=== PATIENT | male | born 1960 | race African-American/Black ===

== ENCOUNTER 2018-03-19 18:11 | Emergency (ER) | payer MEDICAID, MEDICARE ==
[~2018-03-19] VITALS: Ht 162.6 cm; Wt 76.0 kg
[~2018-03-19 18:11] MED LIST: [UNRECOGNIZED DRUG - REMARK]
[2018-03-20] MEDS ORDERED: IBUPROFEN 600MG TABLET PO ONE (01:30)
[2018-03-20] MEDS ORDERED: ACETAMINOPHEN 325MG TABLET PO ONE (01:30)
[2018-03-20 01:45] LABS: BASOPHILS % 0.6 % (0.0-2.0); EOSINOPHILS % 4.2 % (0.0-5.0); HEMATOCRIT. 44.6 % (42.0-52.0); LYMPHOCYTES % 42.7 % (20.0-50.0); MEAN CORPUSCULAR HEMOGLOBIN 27.5 pg (28.0-32.0); MEAN PLATELET VOLUME 9.1 fl (7.4-10.4); MONOCYTES % 12.2 % (2.0-8.0); NEUTROPHILS % 40.3 % (40.0-76.0); PLATELET 208 x1000/uL (130-400); RED BLOOD CELL COUNT 5.44 mill/uL (4.7-6.1); RED CELL DISTRIBUTION WIDTH 14.6 % (11.6-14.6)
[2018-03-20 01:52] LABS: CHLORIDE 108 mEq/L (98-107)
[2018-03-20 01:56] LABS: D-DIMER 0.2 mg/L FEU (<0.50); PROTHROMBIN TIME 10.8 sec (9.4-11.6)
[2018-03-20 03:12] VITALS: BP 132/88
== END 2018-03-20 03:16 | disposition home or self-care (01) ==
LOC: ER 18:11
DX: M54.6 Pain in thoracic spine (principal); I10 Essential (primary) hypertension; R79.1 Abnormal coagulation profile; F17.200 Nicotine dependence, unspecified, uncomplicated
CPT/HCPCS: 36415; 71045; 80053; 83880; 84484; 85025; 85379; 85610; 93005; 99285

== ENCOUNTER 2018-05-04 07:49 | Emergency (ER) | payer MEDICARE ==
[~2018-05-04] VITALS: Ht 177.8 cm; Wt 78.2 kg
[2018-05-04] MEDS ORDERED: KETOROLAC 60MG/2ML VIAL IM ONE (09:15)
[2018-05-04 09:52] VITALS: BP 112/81
== END 2018-05-04 09:54 | disposition home or self-care (01) ==
LOC: ER 07:49
DX: M54.42 Lumbago with sciatica, left side (principal); I10 Essential (primary) hypertension
CPT/HCPCS: 96372; 99283; J1885

== ENCOUNTER 2018-05-06 09:06 | Emergency (ER) | payer MEDICARE ==
[~2018-05-06] VITALS: Ht 162.6 cm; Wt 77.0 kg
[2018-05-06] MEDS ORDERED: KETOROLAC 60MG/2ML VIAL IM ONE (10:00)
[2018-05-06] MEDS ORDERED: DIAZEPAM 5 MG TABLET PO ONE (10:00)
[2018-05-06] MEDS ORDERED: PREDNISONE 20MG TABLET PO ONE (10:00)
[2018-05-06] MEDS ORDERED: BACITRACIN ZINC OINT UDPKT TOP ONE (10:30)
[2018-05-06 11:01] VITALS: BP 144/82
== END 2018-05-06 11:03 | disposition home or self-care (01) ==
LOC: ER 09:06
DX: M54.40 Lumbago with sciatica, unspecified side (principal); I10 Essential (primary) hypertension; F17.200 Nicotine dependence, unspecified, uncomplicated
CPT/HCPCS: 96372; 99283; J1885; J7512; Z7610

== ENCOUNTER 2018-05-21 10:45 | Emergency (ER) | payer MEDICARE ==
[~2018-05-21] VITALS: Ht 170.2 cm; Wt 76.0 kg
[2018-05-21 10:51] VITALS: BP 113/92
== END 2018-05-21 18:21 | disposition left against medical advice (07) ==
LOC: ER 10:45
DX: Z53.21 Procedure and treatment not carried out due to patient leaving prior to being seen by health care provider (principal)

== ENCOUNTER 2019-08-26 22:47 | Emergency (ER) | payer MEDICARE ==
[~2019-08-26] VITALS: Ht 190.5 cm; Wt 95.0 kg
[2019-08-26 23:52] VITALS: BP 132/67
== END 2019-08-26 23:55 | disposition home or self-care (01) ==
LOC: ER 22:47
DX: F10.129 Alcohol abuse with intoxication, unspecified (principal); F17.210 Nicotine dependence, cigarettes, uncomplicated; I10 Essential (primary) hypertension; Y90.9 Presence of alcohol in blood, level not specified
CPT/HCPCS: 99283; 99406

== ENCOUNTER 2020-04-11 19:50 | Emergency (ER) | payer MEDICAID, MEDICARE ==
[~2020-04-11] VITALS: Ht 177.8 cm; Wt 82.0 kg
[2020-04-11 22:54] LABS: BG CARBOXYHEMOGLOBIN 1.7 % (0.5-1.5); BG DEOXYHEMOGLOBIN 6.8 % (0.0-5.0); BG FRACTION INSPIRED OXYGEN 21; BG HCO3 ACT 21.8 mmol/L (22.0-26.0); BG METHEMOGLOBIN 0.3 % (0.0-1.5); BG OXYGEN SATURATION 93.1 % (92.0-98.5); BG OXYHEMOGLOBIN 91.2 % (94.0-97.0); BG PCO2 34.7 mmHg (35.0-45.0); BG PH 7.416 (7.350-7.450); BG PO2 63.5 mmHg (75.0-100.0); BG SAMPLE SITE LEFT RADIAL; BG TOTAL HEMOGLOBIN 14.2 g/dL (12.0-18.0); BG VENT MODE ROOM AIR
[2020-04-12 00:13] LABS: CHLORIDE 106 mEq/L (98-107)
[2020-04-12 00:16] LABS: BASOPHILS % 0.3 % (0.0-2.0); EOSINOPHILS % 0.3 % (0.0-5.0); ETHANOL BLOOD < 10 mg/dL; HEMATOCRIT. 37.2 % (42.0-52.0); HEMOGLOBIN. 12.4 g/dL (14.0-18.0); LYMPHOCYTES % 9.6 % (20.0-50.0); MEAN CORPUSCULAR HEMOGLOBIN 27.2 pg (28.0-32.0); MEAN CORPUSCULAR VOLUME 81.9 fL (80.0-94.0); MEAN PLATELET VOLUME 8.5 fl (7.4-10.4); MONOCYTES % 8.5 % (2.0-8.0); NEUTROPHILS % 81.3 % (40.0-76.0); PLATELET 243 x1000/uL (130-400); RED BLOOD CELL COUNT 4.54 mill/uL (4.7-6.1); RED CELL DISTRIBUTION WIDTH 14.6 % (11.6-14.6)
[2020-04-12 00:24] LABS: CLARITY URINE CLEAR (CLEAR); COLOR URINE YELLOW (YELLOW); KETONES URINE TRACE (NEGATIVE); LEUKOCYTE ESTERASE URINE NEGATIVE (NEGATIVE); NITRITE URINE NEGATIVE (NEGATIVE); OCCULT BLOOD URINE NEGATIVE (NEGATIVE); PH URINE 6.5 (4.5-8.0); PROTEIN URINE TRACE (NEGATIVE); SPECIFIC GRAVITY URINE 1.013 (1.005-1.030); UROBILINOGEN URINE 0.2 E.U./dL (0.2-1.0)
[2020-04-12 00:37] LABS: PHENCYCLIDINE URINE SCREEN NEGATIVE (NEGATIVE)
[2020-04-12 00:38] LABS: *AMPHETAMINES SCREEN URINE NEGATIVE (NEGATIVE); *BARBITURATES SCREEN URINE NEGATIVE (NEGATIVE); *BENZODIAZEPINES SCREEN URINE PRESUMTIVE POSITIVE (NEGATIVE); *COCAINE SCREEN URINE PRESUMTIVE POSITIVE (NEGATIVE); CANNABINOID URINE SCREEN NEGATIVE (NEGATIVE); METHADONE URINE SCREEN NEGATIVE (NEGATIVE); OPIATES URINE SCREEN NEGATIVE (NEGATIVE)
[2020-04-12 01:40] VITALS: BP 142/87
== END 2020-04-12 02:08 | disposition home or self-care (01) ==
LOC: ER 19:50
DX: T40.5X1A Poisoning by cocaine, accidental (unintentional), initial encounter (principal); G92 Toxic encephalopathy; Y92.018 Other place in single-family (private) house as the place of occurrence of the external cause
CPT/HCPCS: 36415; 36600; 80053; 80305; 80320; 81003; 82375; 82805; 85025; 93005; 99284; G0480

== ENCOUNTER 2021-02-15 16:55 | Emergency (ER) | payer MEDICAID ==
[~2021-02-15] VITALS: Ht 165.1 cm; Wt 75.0 kg
[2021-02-15 17:00] VITALS: BP 119/77
[2021-02-15 18:19] LABS: CLARITY URINE CLEAR (CLEAR); COLOR URINE YELLOW (YELLOW); KETONES URINE 1+ (NEGATIVE); LEUKOCYTE ESTERASE URINE NEGATIVE (NEGATIVE); NITRITE URINE NEGATIVE (NEGATIVE); OCCULT BLOOD URINE NEGATIVE (NEGATIVE); PH URINE 5.5 (4.5-8.0); PROTEIN URINE 1+ (NEGATIVE); SPECIFIC GRAVITY URINE 1.033 (1.005-1.030)
== END 2021-02-15 18:07 | disposition home or self-care (01) ==
LOC: ER 16:55
DX: R19.8 Other specified symptoms and signs involving the digestive system and abdomen (principal); I10 Essential (primary) hypertension; N40.0 Benign prostatic hyperplasia without lower urinary tract symptoms
CPT/HCPCS: 81003; 99283

== ENCOUNTER 2021-02-27 08:27 | Emergency (ER) | payer MEDICAID ==
[~2021-02-27] VITALS: Ht 162.6 cm; Wt 77.0 kg
[2021-02-27] MEDS ORDERED: LIDOCAINE HCL 2% JELLY 5ML MM ONE (09:00)
[2021-02-27 11:38] LABS: CLARITY URINE CLEAR (CLEAR); COLOR URINE YELLOW (YELLOW); KETONES URINE TRACE (NEGATIVE); LEUKOCYTE ESTERASE URINE NEGATIVE (NEGATIVE); NITRITE URINE NEGATIVE (NEGATIVE); OCCULT BLOOD URINE NEGATIVE (NEGATIVE); PROTEIN URINE NEGATIVE (NEGATIVE)
[2021-02-27] MEDS ORDERED: ALFU10TA9 MT (11:54)
[2021-02-27 12:25] VITALS: BP 120/79
[2021-02-28] MEDS ORDERED: CEFU500T41 MT (16:20)
[2021-02-28] MEDS ORDERED: TOPUD MT (16:20)
== END 2021-02-27 12:30 | disposition home or self-care (01) ==
LOC: ER 08:27
DX: R10.30 Lower abdominal pain, unspecified (principal); R30.0 Dysuria; I10 Essential (primary) hypertension; Z98.890 Other specified postprocedural states; Z85.46 Personal history of malignant neoplasm of prostate
CPT/HCPCS: 81003; 87086; 99283; Z7610

== ENCOUNTER 2021-02-28 14:26 | Emergency (ER) | payer MEDICAID, OTHER ==
[~2021-02-28] VITALS: Ht 162.6 cm; Wt 81.0 kg
[~2021-02-28 14:26] MED LIST changes: +ALFU10TA9 MT
[2021-02-28 14:29] VITALS: BP 129/78
[2021-02-28] MEDS ORDERED: LIDOCAINE HCL 2% JELLY 5ML TOP ONE (15:15)
[2021-02-28 15:41] LABS: CLARITY URINE CLEAR (CLEAR); COLOR URINE YELLOW (YELLOW); KETONES URINE TRACE (NEGATIVE); LEUKOCYTE ESTERASE URINE 1+ (NEGATIVE); NITRITE URINE NEGATIVE (NEGATIVE); OCCULT BLOOD URINE 2+ (NEGATIVE); PH URINE 6.5 (4.5-8.0); PROTEIN URINE 1+ (NEGATIVE); SPECIFIC GRAVITY URINE 1.022 (1.005-1.030)
[2021-02-28] MEDS ORDERED: TOPUD MT (16:20)
[2021-02-28] MEDS ORDERED: CEFU500T41 MT (16:20)
== END 2021-02-28 16:34 | disposition home or self-care (01) ==
LOC: ER 14:26
DX: N30.00 Acute cystitis without hematuria (principal); Z46.6 Encounter for fitting and adjustment of urinary device; I10 Essential (primary) hypertension; Z85.46 Personal history of malignant neoplasm of prostate
CPT/HCPCS: 81003; 99283

== ENCOUNTER 2021-03-01 15:03 | Emergency (ER) | payer OTHER ==
[~2021-03-01] VITALS: Ht 157.5 cm; Wt 72.0 kg
[~2021-03-01 15:03] MED LIST changes: +CEFU500T41 MT; +TOPUD MT
[2021-03-01 17:26] VITALS: BP 121/68
== END 2021-03-01 17:28 | disposition home or self-care (01) ==
LOC: ER 15:38
DX: Z46.6 Encounter for fitting and adjustment of urinary device (principal); I10 Essential (primary) hypertension; Z85.9 Personal history of malignant neoplasm, unspecified; Z87.440 Personal history of urinary (tract) infections
CPT/HCPCS: 99281

== ENCOUNTER 2021-10-28 08:57 | Emergency (ER) | payer MEDICAID, OTHER ==
[~2021-10-28] VITALS: Ht 162.6 cm; Wt 77.0 kg
[2021-10-28] MEDS ORDERED: IBUPROFEN 400MG TABLET PO ONE (10:30)
[2021-10-28] MEDS ORDERED: ACETAMINOPHEN 325MG TABLET PO ONE (10:30)
[2021-10-28 10:45] LABS: CLARITY URINE CLEAR (CLEAR); COLOR URINE YELLOW (YELLOW); KETONES URINE NEGATIVE (NEGATIVE); LEUKOCYTE ESTERASE URINE NEGATIVE (NEGATIVE); NITRITE URINE NEGATIVE (NEGATIVE); OCCULT BLOOD URINE NEGATIVE (NEGATIVE); PH URINE 6.5 (4.5-8.0); PROTEIN URINE NEGATIVE (NEGATIVE); SPECIFIC GRAVITY URINE 1.012 (1.005-1.030); UROBILINOGEN URINE 0.2 E.U./dL (0.2-1.0)
[2021-10-28 11:51] LABS: CHLORIDE 112 mEq/L (98-107)
[2021-10-28] MEDS ORDERED: IOHEXOL-300 100 ML BOTTLE ONE (14:24)
[2021-10-28] MEDS ORDERED: CEPH500C2 MT (15:59)
[2021-10-28 16:22] VITALS: BP 148/84
== END 2021-10-28 16:23 | disposition home or self-care (01) ==
LOC: ER 08:57
DX: R10.32 Left lower quadrant pain (principal); R30.0 Dysuria; I10 Essential (primary) hypertension
CPT/HCPCS: 36415; 74177; 80048; 81003; 99284; Q9967

== ENCOUNTER 2021-11-02 10:38 | Emergency (ER) | payer OTHER ==
[~2021-11-02] VITALS: Ht 162.6 cm; Wt 75.0 kg
[~2021-11-02 10:38] MED LIST changes: +CEPH500C2 MT
[2021-11-02] MEDS ORDERED: ACETAMINOPHEN WITH CODEINE 300/30MG TABLET PO ONE (11:30)
[2021-11-02 11:59] VITALS: BP 145/96
[2021-11-02 12:14] LABS: CLARITY URINE CLEAR (CLEAR); COLOR URINE YELLOW (YELLOW); KETONES URINE NEGATIVE (NEGATIVE); LEUKOCYTE ESTERASE URINE NEGATIVE (NEGATIVE); NITRITE URINE NEGATIVE (NEGATIVE); OCCULT BLOOD URINE 1+ (NEGATIVE); PROTEIN URINE NEGATIVE (NEGATIVE); SPECIFIC GRAVITY URINE 1.006 (1.005-1.030); UROBILINOGEN URINE 0.2 E.U./dL (0.2-1.0)
== END 2021-11-02 12:38 | disposition home or self-care (01) ==
LOC: ER 10:38
DX: R33.9 Retention of urine, unspecified (principal); I10 Essential (primary) hypertension; Z98.890 Other specified postprocedural states
CPT/HCPCS: 51702; 81003; 99284; A4315

== ENCOUNTER 2021-11-09 15:16 | Emergency (ER) | payer OTHER ==
[~2021-11-09] VITALS: Ht 177.8 cm; Wt 90.0 kg
[2021-11-09 15:57] LABS: BASOPHILS % 0.7 % (0.0-2.0); EOSINOPHILS % 1.1 % (0.0-5.0); HEMATOCRIT. 41.8 % (42.0-52.0); HEMOGLOBIN. 13.8 g/dL (14.0-18.0); LYMPHOCYTES % 28.6 % (20.0-50.0); MEAN CORPUSCULAR HEMOGLOBIN 26.2 pg (28.0-32.0); MEAN CORPUSCULAR VOLUME 79.7 fL (80.0-94.0); MEAN PLATELET VOLUME 8.4 fl (7.4-10.4); MONOCYTES % 9.3 % (2.0-8.0); NEUTROPHILS % 60.3 % (40.0-76.0); PLATELET 239 x1000/uL (130-400); RED BLOOD CELL COUNT 5.25 mill/uL (4.7-6.1); RED CELL DISTRIBUTION WIDTH 14.4 % (11.6-14.6)
[2021-11-09 16:03] LABS: CHLORIDE 110 mEq/L (98-107)
[2021-11-09 16:17] VITALS: BP 138/83
[2021-11-09 16:29] LABS: CLARITY URINE CLEAR (CLEAR); COLOR URINE YELLOW (YELLOW); KETONES URINE NEGATIVE (NEGATIVE); LEUKOCYTE ESTERASE URINE 1+ (NEGATIVE); NITRITE URINE NEGATIVE (NEGATIVE); OCCULT BLOOD URINE 3+ (NEGATIVE); PROTEIN URINE 1+ (NEGATIVE); SPECIFIC GRAVITY URINE 1.009 (1.005-1.030); UROBILINOGEN URINE 0.2 E.U./dL (0.2-1.0)
[2021-11-09] MEDS ORDERED: OXYC-662 MT (17:30)
== END 2021-11-09 17:55 | disposition home or self-care (01) ==
LOC: ER 15:16
DX: R33.9 Retention of urine, unspecified (principal); Z98.890 Other specified postprocedural states
CPT/HCPCS: 36415; 80053; 81003; 85025; 99283

== ENCOUNTER 2021-11-20 11:53 | Emergency (ER) | payer OTHER ==
[~2021-11-20] VITALS: Ht 162.6 cm; Wt 69.0 kg
[~2021-11-20 11:53] MED LIST changes: +OXYC-662 MT
[2021-11-20 12:15] LABS: BASOPHILS % 0.6 % (0.0-2.0); EOSINOPHILS % 0.6 % (0.0-5.0); HEMATOCRIT. 40.5 % (42.0-52.0); HEMOGLOBIN. 13.5 g/dL (14.0-18.0); LYMPHOCYTES % 17.9 % (20.0-50.0); MEAN CORPUSCULAR HEMOGLOBIN 26.5 pg (28.0-32.0); MEAN CORPUSCULAR VOLUME 79.4 fL (80.0-94.0); MONOCYTES % 13.1 % (2.0-8.0); NEUTROPHILS % 67.8 % (40.0-76.0); PLATELET 182 x1000/uL (130-400); RED CELL DISTRIBUTION WIDTH 14.3 % (11.6-14.6)
[2021-11-20 12:23] LABS: CHLORIDE 110 mEq/L (98-107)
[2021-11-20] MEDS ORDERED: HYDROCODONE/ACETAMINOPHEN 10/325MG TABLET PO ONE (16:30)
[2021-11-20 16:32] LABS: CLARITY URINE CLEAR (CLEAR); COLOR URINE YELLOW (YELLOW); KETONES URINE NEGATIVE (NEGATIVE); LEUKOCYTE ESTERASE URINE 1+ (NEGATIVE); NITRITE URINE POSITIVE (NEGATIVE); OCCULT BLOOD URINE 2+ (NEGATIVE); PROTEIN URINE TRACE (NEGATIVE); UROBILINOGEN URINE 0.2 E.U./dL (0.2-1.0)
[2021-11-20 16:42] LABS: CANNABINOID URINE SCREEN NEGATIVE (NEGATIVE); METHADONE URINE SCREEN NEGATIVE (NEGATIVE); OPIATES URINE SCREEN PRESUMTIVE POSITIVE (NEGATIVE)
[2021-11-20 16:43] LABS: *AMPHETAMINES SCREEN URINE NEGATIVE (NEGATIVE); *BARBITURATES SCREEN URINE NEGATIVE (NEGATIVE); *BENZODIAZEPINES SCREEN URINE NEGATIVE (NEGATIVE); *COCAINE SCREEN URINE NEGATIVE (NEGATIVE); PHENCYCLIDINE URINE SCREEN NEGATIVE (NEGATIVE)
[2021-11-20] MEDS ORDERED: MORPHINE SULFATE 4 MG/ML CPJ (NOT FOR IM USE) IV ONE (17:00)
[2021-11-20] MEDS ORDERED: KETOROLAC 30MG/ML VIAL IV ONE (19:45)
[2021-11-20] MEDS ORDERED: SODIUM CHLORIDE 0.9% 1,000 ML IV ONE (20:00)
[2021-11-20] MEDS ORDERED: CEFTRIAXONE 1 G PREMIX 50 ML IV NR (20:00)
[2021-11-20] MEDS ORDERED: CIPR-263 MT (21:20)
[2021-11-20] MEDS ORDERED: PHEN97.517 MT (21:20)
[2021-11-20 22:36] VITALS: BP 144/83
== END 2021-11-20 22:48 | disposition home or self-care (01) ==
LOC: ER 12:24
DX: T83.84XA Pain due to genitourinary prosthetic devices, implants and grafts, initial encounter (principal); N39.0 Urinary tract infection, site not specified; I49.9 Cardiac arrhythmia, unspecified; Z20.822 Contact with and (suspected) exposure to COVID-19
CPT/HCPCS: 36415; 80053; 80305; 81003; 83605; 85025; 87040; 87086; 87426; 93005; 96361; 96365; 96375; 99284; J0696; J1885; J2270

== ENCOUNTER 2021-12-03 15:11 | Emergency (ER) | payer OTHER ==
[~2021-12-03] VITALS: Ht 162.6 cm; Wt 68.0 kg
[~2021-12-03 15:11] MED LIST changes: +CIPR-263 MT; +PHEN97.517 MT
[2021-12-03 17:26] VITALS: BP 161/101
== END 2021-12-03 17:26 | disposition home or self-care (01) ==
LOC: ER 15:11
DX: T83.098A Other mechanical complication of other urinary catheter, initial encounter (principal); Y84.6 Urinary catheterization as the cause of abnormal reaction of the patient, or of later complication, without mention of misadventure at the time of the procedure; I10 Essential (primary) hypertension; Z85.46 Personal history of malignant neoplasm of prostate; Y92.018 Other place in single-family (private) house as the place of occurrence of the external cause
CPT/HCPCS: 99281

== ENCOUNTER 2021-12-17 03:15 | Emergency (ER) | payer MEDICAID, OTHER ==
[~2021-12-17] VITALS: Ht 154.9 cm; Wt 69.0 kg
[2021-12-17 03:25] VITALS: BP 154/87
[2021-12-17 04:42] LABS: CLARITY URINE CLEAR (CLEAR); COLOR URINE YELLOW (YELLOW); KETONES URINE NEGATIVE (NEGATIVE); LEUKOCYTE ESTERASE URINE NEGATIVE (NEGATIVE); NITRITE URINE NEGATIVE (NEGATIVE); OCCULT BLOOD URINE TRACE (NEGATIVE); PH URINE 5.5 (4.5-8.0); PROTEIN URINE NEGATIVE (NEGATIVE); SPECIFIC GRAVITY URINE 1.012 (1.005-1.030); UROBILINOGEN URINE 0.2 E.U./dL (0.2-1.0)
== END 2021-12-17 05:26 | disposition home or self-care (01) ==
LOC: ER 03:35
DX: T83.098A Other mechanical complication of other urinary catheter, initial encounter (principal); R33.9 Retention of urine, unspecified; I10 Essential (primary) hypertension; Z85.46 Personal history of malignant neoplasm of prostate; Y84.6 Urinary catheterization as the cause of abnormal reaction of the patient, or of later complication, without mention of misadventure at the time of the procedure; Y92.018 Other place in single-family (private) house as the place of occurrence of the external cause
CPT/HCPCS: 81003; 99283; A4315

== ENCOUNTER 2022-01-05 03:30 | Emergency (ER) | payer MEDICAID ==
[~2022-01-05] VITALS: Ht 162.6 cm; Wt 68.9 kg
[2022-01-05] MEDS ORDERED: METOCLOPRAMIDE HCL 10MG/2ML VIAL IV STA (05:26)
[2022-01-05] MEDS ORDERED: SODIUM CHLORIDE 0.9% 1,000 ML IV ONE (05:30)
[2022-01-05] MEDS ORDERED: KETOROLAC 15MG/ML VIAL IV ONE (05:30)
[2022-01-05 06:16] LABS: BASOPHILS % 0.3 % (0.0-2.0); EOSINOPHILS % 1.8 % (0.0-5.0); HEMATOCRIT. 28.7 % (42.0-52.0); HEMOGLOBIN. 9.7 g/dL (14.0-18.0); LYMPHOCYTES % 35.7 % (20.0-50.0); MEAN CORPUSCULAR HEMOGLOBIN 26.1 pg (28.0-32.0); MEAN CORPUSCULAR VOLUME 77.2 fL (80.0-94.0); MEAN PLATELET VOLUME 7.5 fl (7.4-10.4); MONOCYTES % 12.3 % (2.0-8.0); NEUTROPHILS % 49.9 % (40.0-76.0); PLATELET 246 x1000/uL (130-400); RED BLOOD CELL COUNT 3.72 mill/uL (4.7-6.1); RED CELL DISTRIBUTION WIDTH 15.4 % (11.6-14.6)
[2022-01-05 06:26] LABS: CHLORIDE 112 mEq/L (98-107)
[2022-01-05 09:44] LABS: CLARITY URINE CLEAR (CLEAR); COLOR URINE YELLOW (YELLOW); KETONES URINE NEGATIVE (NEGATIVE); LEUKOCYTE ESTERASE URINE TRACE (NEGATIVE); NITRITE URINE NEGATIVE (NEGATIVE); OCCULT BLOOD URINE NEGATIVE (NEGATIVE); PH URINE 5.5 (4.5-8.0); PROTEIN URINE NEGATIVE (NEGATIVE); SPECIFIC GRAVITY URINE 1.007 (1.005-1.030); UROBILINOGEN URINE 0.2 E.U./dL (0.2-1.0)
[2022-01-05 11:40] VITALS: BP 139/85
== END 2022-01-05 11:54 | disposition home or self-care (01) ==
LOC: ER 03:30
DX: R10.9 Unspecified abdominal pain (principal); Z46.6 Encounter for fitting and adjustment of urinary device; I10 Essential (primary) hypertension; Z85.46 Personal history of malignant neoplasm of prostate
CPT/HCPCS: 36415; 74176; 80053; 81003; 83605; 83690; 84484; 85025; 93005; 96361; 96374; 96375; 99285; J1885; J2765; J7030

== ENCOUNTER 2022-01-22 00:11 | Emergency (ER) | payer MEDICAID ==
[~2022-01-22] VITALS: Ht 162.6 cm; Wt 66.7 kg
[2022-01-22 00:19] VITALS: BP 140/81
[2022-02-01] MEDS ORDERED: CETI10CA11 MT (15:58)
== END 2022-01-22 02:09 | disposition home or self-care (01) ==
LOC: ER 00:11
DX: Z46.6 Encounter for fitting and adjustment of urinary device (principal); Z85.46 Personal history of malignant neoplasm of prostate
CPT/HCPCS: 51702; 99284

== ENCOUNTER 2022-02-27 04:16 | Emergency (ER) | payer MEDICAID ==
[~2022-02-27] VITALS: Ht 162.6 cm; Wt 69.3 kg
[~2022-02-27 04:16] MED LIST changes: +CETI10CA11 MT
[2022-02-27 05:58] LABS: CLARITY URINE CLOUDY (CLEAR); COLOR URINE YELLOW (YELLOW); KETONES URINE NEGATIVE (NEGATIVE); LEUKOCYTE ESTERASE URINE 3+ (NEGATIVE); NITRITE URINE POSITIVE (NEGATIVE); OCCULT BLOOD URINE 3+ (NEGATIVE); PH URINE 5.5 (4.5-8.0); PROTEIN URINE 2+ (NEGATIVE); SPECIFIC GRAVITY URINE 1.014 (1.005-1.030)
[2022-02-27] MEDS ORDERED: LEVO250T43 PO (06:38)
[2022-02-27 06:45] VITALS: BP 136/79
== END 2022-02-27 06:50 | disposition home or self-care (01) ==
LOC: ER 04:16
DX: N39.0 Urinary tract infection, site not specified (principal); I10 Essential (primary) hypertension; Z85.46 Personal history of malignant neoplasm of prostate; Z98.890 Other specified postprocedural states
CPT/HCPCS: 81003; 87077; 87186; 99283

== ENCOUNTER 2022-03-23 09:47 | Emergency (ER) | payer MEDICAID ==
[~2022-03-23] VITALS: Ht 175.3 cm; Wt 75.0 kg
[~2022-03-23 09:47] MED LIST changes: +LEVO250T43 PO
[2022-03-23 13:39] LABS: BASOPHILS % 0.3 % (0.0-2.0); EOSINOPHILS % 1.4 % (0.0-5.0); HEMATOCRIT. 32.6 % (42.0-52.0); HEMOGLOBIN. 10.3 g/dL (14.0-18.0); LYMPHOCYTES % 38.7 % (20.0-50.0); MEAN CORPUSCULAR HEMOGLOBIN 26.7 pg (28.0-32.0); MEAN CORPUSCULAR VOLUME 84.7 fL (80.0-94.0); MEAN PLATELET VOLUME 7.4 fl (7.4-10.4); MONOCYTES % 9.6 % (2.0-8.0); PLATELET 243 x1000/uL (130-400); RED BLOOD CELL COUNT 3.85 mill/uL (4.7-6.1); RED CELL DISTRIBUTION WIDTH 18.8 % (11.6-14.6)
[2022-03-23 13:44] LABS: CHLORIDE 110 mEq/L (98-107)
[2022-03-23 14:00] LABS: CLARITY URINE TURBID (CLEAR); COLOR URINE YELLOW (YELLOW); KETONES URINE TRACE (NEGATIVE); LEUKOCYTE ESTERASE URINE 3+ (NEGATIVE); NITRITE URINE POSITIVE (NEGATIVE); OCCULT BLOOD URINE 3+ (NEGATIVE); PH URINE 5.5 (4.5-8.0); PROTEIN URINE 2+ (NEGATIVE); SPECIFIC GRAVITY URINE 1.024 (1.005-1.030)
[2022-03-23] MEDS ORDERED: DOXY100C5 MT (14:28)
[2022-03-23] MEDS ORDERED: DOXYCYCLINE HYCLATE 100MG CAPSULE PO ONE (14:30)
[2022-03-23 14:35] VITALS: BP 132/77
== END 2022-03-23 14:36 | disposition home or self-care (01) ==
LOC: ER 10:17
DX: N30.00 Acute cystitis without hematuria (principal); I10 Essential (primary) hypertension; Z85.46 Personal history of malignant neoplasm of prostate; Z90.79 Acquired absence of other genital organ(s); Z87.891 Personal history of nicotine dependence
CPT/HCPCS: 36415; 80053; 81003; 83605; 85025; 87077; 87186; 99283

== ENCOUNTER 2023-03-07 09:30 | Emergency (ER) | payer MEDICAID, OTHER ==
[~2023-03-07] VITALS: Ht 162.6 cm; Wt 72.7 kg
[~2023-03-07 09:30] MED LIST changes: +DOXY100C5 MT; -LEVO250T43 PO; +LEVO250T74 PO
[2023-03-07 09:42] VITALS: O2SAT 98
[2023-03-07] MEDS ORDERED: KETOROLAC 60MG/2ML VIAL IM ONE (10:30)
[2023-03-07] MEDS ORDERED: LEVOFLOXACIN 250MG TABLET PO ONE (10:30)
[2023-03-07] MEDS ORDERED: TAMSULOSIN HCL 0.4MG SR CAPSULE PO ONE (10:30)
[2023-03-07] MEDS ORDERED: LEVOFLOXACIN 500MG TABLET PO NR (10:36)
[2023-03-07] MEDS ORDERED: LEVO-65 MT (12:34)
[2023-03-07] MEDS ORDERED: ALFU10TA9 MT (12:34)
[2023-03-07] MEDS ORDERED: IBUP-2029 MT ×3 (12:34→12:35)
[2023-03-07 13:02] VITALS: BP 128/80; PULSE 99; RESP 22; TEMP 98.2
== END 2023-03-07 13:03 | disposition home or self-care (01) ==
LOC: ER 09:30
DX: N41.9 Inflammatory disease of prostate, unspecified (principal); I10 Essential (primary) hypertension; Z79.899 Other long term (current) drug therapy; Z98.890 Other specified postprocedural states
CPT/HCPCS: 87086; 87186; 87077; 96372; 99283; J1885; Z7610

== ENCOUNTER 2023-04-05 13:29 | Emergency (ER) | payer OTHER ==
[~2023-04-05] VITALS: Ht 162.6 cm; Wt 66.0 kg
[~2023-04-05 13:29] MED LIST changes: +IBUP-2029 MT; +LEVO-65 MT
[2023-04-05 13:38] VITALS: BP 140/86; PULSE 80; RESP 16; TEMP 98.5; O2SAT 100
[2023-04-05] MEDS ORDERED: NITR100C PO (13:51)
[2023-04-05] MEDS ORDERED: PHEN-815 PO (13:52)
== END 2023-04-05 14:06 | disposition home or self-care (01) ==
LOC: ER 13:29
DX: N39.0 Urinary tract infection, site not specified (principal)
CPT/HCPCS: 99281; 99283

== ENCOUNTER 2023-04-09 02:52 | Emergency (ER) | payer OTHER ==
[~2023-04-09] VITALS: Ht 162.6 cm; Wt 68.0 kg
[~2023-04-09 02:52] MED LIST changes: +NITR100C PO; +PHEN-815 PO
[2023-04-09 03:09] VITALS: BP 159/95; O2SAT 99
[2023-04-09 04:32] LABS: CLARITY URINE CLEAR (CLEAR); COLOR URINE YELLOW (YELLOW); GLUCOSE URINE NEGATIVE (NEGATIVE); KETONES URINE NEGATIVE (NEGATIVE); LEUKOCYTE ESTERASE URINE NEGATIVE (NEGATIVE); NITRITE URINE NEGATIVE (NEGATIVE); OCCULT BLOOD URINE 2+ (NEGATIVE); PH URINE 6.5 (4.5-8.0); PROTEIN URINE TRACE (NEGATIVE); SPECIFIC GRAVITY URINE 1.011 (1.005-1.030)
[2023-04-09 04:35] LABS: BACTERIA URINE NONE SEEN; RBC URINE 25-50 /hpf (0-2); SQUAMOUS EPITHELIAL CELL URINE NONE SEEN /lpf (RARE/1+); WBC URINE 0-2 /hpf (0-2); YEAST URINE NONE SEEN
[2023-04-09] MEDS ORDERED: DOXY-456 MT (04:55)
[2023-04-09 05:30] VITALS: PULSE 82; RESP 16; TEMP 98.1
== END 2023-04-09 05:30 | disposition home or self-care (01) ==
LOC: ER 02:52
DX: R30.0 Dysuria (principal); I10 Essential (primary) hypertension; Z79.899 Other long term (current) drug therapy
CPT/HCPCS: 81003; 99283; A4315

== ENCOUNTER 2023-04-14 19:54 | Emergency (ER) | payer OTHER ==
[~2023-04-14] VITALS: Ht 167.6 cm; Wt 72.1 kg
[~2023-04-14 19:54] MED LIST changes: +DOXY-456 MT
[2023-04-14 20:45] VITALS: O2SAT 98
[2023-04-14 21:20] LABS: BASOPHILS % 0.3 % (0.0-2.0); EOSINOPHILS % 1.8 % (0.0-5.0); HEMATOCRIT. 35.3 % (42.0-52.0); HEMOGLOBIN. 11.1 g/dL (14.0-18.0); LYMPHOCYTES % 21.8 % (20.0-50.0); MEAN CORPUSCULAR HEMOGLOBIN 25.4 pg (28.0-32.0); MEAN CORPUSCULAR HGB CONC 31.5 g/dL (31.0-37.0); MEAN CORPUSCULAR VOLUME 80.4 fL (80.0-94.0); MEAN PLATELET VOLUME 7.5 fl (7.4-10.4); MONOCYTES % 7.8 % (2.0-8.0); NEUTROPHILS % 68.3 % (40.0-76.0); PLATELET 376 x1000/uL (130-400); RED BLOOD CELL COUNT 4.38 mill/uL (4.7-6.1); RED CELL DISTRIBUTION WIDTH 17.1 % (11.6-14.6); WHITE BLOOD COUNT 7.3 x1000/uL (4.5-11.0)
[2023-04-14 21:28] LABS: CHLORIDE 109 mEq/L (98-107); INDEX HEMOLYSI 1 (1-3); INDEX ICTERIC 1 (1-4); INDEX LIPEMIC 1 (1-3); POTASSIUM 3.8 mEq/L (3.5-5.1); SODIUM 140 mEq/L (136-145)
[2023-04-14 21:39] LABS: ALANINE AMINOTRANSFERASE 15 IU/L (13-61); ALBUMIN 3.1 g/dL (3.4-5.0); ASPARTATE AMINOTRANSFERASE 20 IU/L (15-37); BILIRUBIN TOTAL 0.2 mg/dL (0.1-1.0); CALCIUM 9.6 mg/dL (8.5-10.1); CARBON DIOXIDE 22 mEq/L (21-32); CREATININE 1.2 mg/dL (0.6-1.3); GLUCOSE 100 mg/dL (70-105); PROTEIN TOTAL 8.4 g/dL (6.0-8.3); TROPONIN I HIGH SENSITIVITY 4 ng/L (<78); UREA NITROGEN BLOOD 18 mg/dL (7-21)
[2023-04-15] MEDS ORDERED: SODIUM CHLORIDE 0.9% 1,000 ML IV ONE (01:15)
[2023-04-15] MEDS ORDERED: IOHEXOL-300 100 ML BOTTLE ONE (02:48)
[2023-04-15 06:03] VITALS: BP 143/90; PULSE 73; RESP 22; TEMP 98.3
== END 2023-04-15 06:06 | disposition home or self-care (01) ==
LOC: ER 19:54
DX: R19.00 Intra-abdominal and pelvic swelling, mass and lump, unspecified site (principal); I10 Essential (primary) hypertension; Z85.9 Personal history of malignant neoplasm, unspecified; Z79.899 Other long term (current) drug therapy
CPT/HCPCS: 80053; 83690; 85025; 84484; 36415; 99285; 74177; 96360; Q9967; J7030; Z7610 ×2

== ENCOUNTER 2023-09-06 17:47 | Emergency (ER) | payer MEDICAID, OTHER ==
[~2023-09-06] VITALS: Ht 162.6 cm; Wt 72.6 kg
[2023-09-06 18:00] VITALS: BP 148/77; PULSE 116; RESP 16; TEMP 98.2; O2SAT 98
[2023-09-06] MEDS ORDERED: IBUPROFEN 400MG TABLET PO NR (18:30)
[2023-09-06] MEDS ORDERED: IBUPROFEN 400MG TABLET PO ONE (18:30)
[2023-09-06] MEDS ORDERED: ACETAMINOPHEN 325MG TABLET PO ONE (18:30)
[2023-09-06] MEDS ORDERED: ACETAMINOPHEN 325MG TABLET PO NR (18:30)
[2023-09-06 19:14] LABS: BASOPHILS % 0.2 % (0.0-2.0); DIFFERENTIAL COMMENT 0; EOSINOPHILS % 0.4 % (0.0-5.0); HEMATOCRIT. 28.8 % (42.0-52.0); HEMOGLOBIN. 8.9 g/dL (14.0-18.0); LYMPHOCYTES % 16.2 % (20.0-50.0); MEAN CORPUSCULAR HEMOGLOBIN 24.4 pg (28.0-32.0); MEAN CORPUSCULAR HGB CONC 30.8 g/dL (31.0-37.0); MEAN CORPUSCULAR VOLUME 79.3 fL (80.0-94.0); MONOCYTES % 13.2 % (2.0-8.0); PLATELET 343 x1000/uL (130-400); RED BLOOD CELL COUNT 3.63 mill/uL (4.7-6.1); RED CELL DISTRIBUTION WIDTH 18.1 % (11.6-14.6); WHITE BLOOD COUNT 7.9 x1000/uL (4.5-11.0)
[2023-09-06 19:28] LABS: ALANINE AMINOTRANSFERASE < 7 IU/L (10-49); ALBUMIN 3.9 g/dL (3.2-4.8); ASPARTATE AMINOTRANSFERASE 18 IU/L (<34); BILIRUBIN TOTAL 0.2 mg/dL (0.1-1.0); CALCIUM 8.9 mg/dL (8.7-10.4); CARBON DIOXIDE 25 mEq/L (21-32); CHLORIDE 107 mEq/L (98-107); CREATININE 1.3 mg/dL (0.6-1.3); GLUCOSE 95 mg/dL (70-105); PROTEIN TOTAL 7.3 g/dL (6.0-8.3); SODIUM 137 mEq/L (136-145); UREA NITROGEN BLOOD 19 mg/dL (9-23)
[2023-09-06 19:31] LABS: TROPONIN I HIGH SENSITIVITY < 4 ng/L (3.0-53)
[2023-09-06] MEDS ORDERED: KETOROLAC 60MG/2ML VIAL IM ONE (21:45)
[2023-09-06] MEDS ORDERED: HYDROCODONE/ACETAMINOPHEN 5/325MG TABLET PO ONE (21:45)
== END 2023-09-06 22:36 | disposition home or self-care (01) ==
LOC: ER 17:47 → CANBEDREQ 21:44 → ER 22:36
DX: M79.10 Myalgia, unspecified site (principal); I10 Essential (primary) hypertension; Z85.9 Personal history of malignant neoplasm, unspecified; Z79.899 Other long term (current) drug therapy
CPT/HCPCS: 80053; 83880; 83690; 85025; 84484; 36415; 73502; 93005; 96372; 99285; J1885; Z7610

== ENCOUNTER 2023-09-09 11:29 | Emergency (ER) | payer MEDICAID ==
[~2023-09-09] VITALS: Ht 165.1 cm; Wt 64.0 kg
[2023-09-09 11:34] VITALS: O2SAT 97
[2023-09-09 12:15] LABS: BASOPHILS % 0.4 % (0.0-2.0); DIFFERENTIAL COMMENT 0; LYMPHOCYTES % 30.7 % (20.0-50.0); MEAN CORPUSCULAR HEMOGLOBIN 26.5 pg (28.0-32.0); MEAN CORPUSCULAR HGB CONC 33.3 g/dL (31.0-37.0); MEAN CORPUSCULAR VOLUME 79.7 fL (80.0-94.0); MEAN PLATELET VOLUME 6.4 fl (7.4-10.4); MONOCYTES % 7.8 % (2.0-8.0); NEUTROPHILS % 59.1 % (40.0-76.0); PLATELET 336 x1000/uL (130-400); RED BLOOD CELL COUNT 3.38 mill/uL (4.7-6.1); WHITE BLOOD COUNT 4.7 x1000/uL (4.5-11.0)
[2023-09-09 12:38] LABS: ALANINE AMINOTRANSFERASE 8 IU/L (10-49); ALBUMIN 3.9 g/dL (3.2-4.8); ASPARTATE AMINOTRANSFERASE 13 IU/L (<34); BILIRUBIN TOTAL < 0.2 mg/dL (0.1-1.0); CALCIUM 9.2 mg/dL (8.7-10.4); CARBON DIOXIDE 25 mEq/L (21-32); CHLORIDE 107 mEq/L (98-107); GLUCOSE 92 mg/dL (70-105); POTASSIUM 3.7 mEq/L (3.5-5.1); PROTEIN TOTAL 8.2 g/dL (6.0-8.3); SODIUM 140 mEq/L (136-145); UREA NITROGEN BLOOD 19 mg/dL (9-23)
[2023-09-09 12:42] LABS: PROTHROMBIN TIME 10.6 sec (9.6-11.0)
[2023-09-09 12:54] LABS: TROPONIN I HIGH SENSITIVITY < 4 ng/L (3.0-53)
[2023-09-09 15:01] LABS: CLARITY URINE CLEAR (CLEAR); COLOR URINE YELLOW (YELLOW); GLUCOSE URINE NEGATIVE (NEGATIVE); KETONES URINE NEGATIVE (NEGATIVE); LEUKOCYTE ESTERASE URINE 2+ (NEGATIVE); NITRITE URINE NEGATIVE (NEGATIVE); OCCULT BLOOD URINE 2+ (NEGATIVE); PH URINE 5.5 (4.5-8.0); PROTEIN URINE 2+ (NEGATIVE); SPECIFIC GRAVITY URINE 1.024 (1.005-1.030)
[2023-09-09 15:25] LABS: SQUAMOUS EPITHELIAL CELL URINE FEW /lpf (RARE/1+)
[2023-09-09 15:26] LABS: BACTERIA URINE 1+; RBC URINE 15-25 /hpf (0-2)
[2023-09-09 15:27] LABS: WBC URINE 25-50 /hpf (0-2)
[2023-09-09] MEDS ORDERED: T3 PO (18:00)
[2023-09-09] MEDS ORDERED: HYDROCODONE/ACETAMINOPHEN 5/325MG TABLET PO ONE (18:15)
[2023-09-09 18:17] VITALS: BP 148/63; PULSE 88; RESP 18; TEMP 98.5
== END 2023-09-09 18:19 | disposition home or self-care (01) ==
LOC: ER 11:29
DX: R07.89 Other chest pain (principal); C80.1 Malignant (primary) neoplasm, unspecified; I10 Essential (primary) hypertension; Z79.899 Other long term (current) drug therapy
CPT/HCPCS: 80053; 81003; 85025; 85379; 85610; 87086; 87186; 84484; 87077; 36415; 71045; 71275; 99285; Z7610; 99284

== ENCOUNTER 2023-09-23 12:39 | Emergency (ER) | payer MEDICAID ==
[~2023-09-23] VITALS: Ht 162.6 cm; Wt 70.0 kg
[~2023-09-23 12:39] MED LIST changes: +T3 PO
[2023-09-23 12:52] VITALS: TEMP 98.5; O2SAT 97
[2023-09-23] MEDS ORDERED: IBUP-2030 MT (15:42)
[2023-09-23] MEDS ORDERED: AMOX-494 MT (15:42)
[2023-09-23] MEDS ORDERED: HYDR-4001 MT (15:42)
[2023-09-23] MEDS ORDERED: HYDROCODONE/ACETAMINOPHEN 10/325MG TABLET PO ONE (15:45)
[2023-09-23] MEDS ORDERED: AMOX1TAB16 MT (15:56)
[2023-09-23] MEDS ORDERED: AMOXICILLIN/POTASSIUM CLAVULANATE 875/125MG TAB PO ONE (17:00)
[2023-09-23 17:39] VITALS: BP 149/95; PULSE 99; RESP 14
[2023-09-23] MEDS ORDERED: CHLO473M2 MT (18:06)
== END 2023-09-23 15:56 | disposition home or self-care (01) ==
LOC: ER 12:39
DX: K08.89 Other specified disorders of teeth and supporting structures (principal); C79.51 Secondary malignant neoplasm of bone; Z85.9 Personal history of malignant neoplasm, unspecified; I10 Essential (primary) hypertension; Z79.899 Other long term (current) drug therapy
CPT/HCPCS: 73502; 99283

== ENCOUNTER 2023-11-09 11:19 | Emergency (ER) | payer MEDICAID, OTHER ==
[~2023-11-09] VITALS: Ht 177.8 cm; Wt 68.0 kg
[~2023-11-09 11:19] MED LIST changes: +AMOX1TAB16 MT; +CHLO473M2 MT; +HYDR-4001 MT; +IBUP-2030 MT
[2023-11-09 11:25] VITALS: O2SAT 98
[2023-11-09 12:07] LABS: BASOPHILS % 0.2 % (0.0-2.0); DIFFERENTIAL COMMENT 0; EOSINOPHILS % 0.5 % (0.0-5.0); HEMATOCRIT. 27.8 % (42.0-52.0); HEMOGLOBIN. 8.9 g/dL (14.0-18.0); LYMPHOCYTES % 20.8 % (20.0-50.0); MEAN CORPUSCULAR HEMOGLOBIN 24.3 pg (28.0-32.0); MEAN PLATELET VOLUME 6.7 fl (7.4-10.4); MONOCYTES % 13.9 % (2.0-8.0); NEUTROPHILS % 64.6 % (40.0-76.0); PLATELET 268 x1000/uL (130-400); RED BLOOD CELL COUNT 3.66 mill/uL (4.7-6.1); RED CELL DISTRIBUTION WIDTH 20.4 % (11.6-14.6); WHITE BLOOD COUNT 6.9 x1000/uL (4.5-11.0)
[2023-11-09 12:15] LABS: CLARITY URINE CLEAR (CLEAR); COLOR URINE YELLOW (YELLOW); GLUCOSE URINE NEGATIVE (NEGATIVE); KETONES URINE NEGATIVE (NEGATIVE); LEUKOCYTE ESTERASE URINE TRACE (NEGATIVE); NITRITE URINE NEGATIVE (NEGATIVE); OCCULT BLOOD URINE 3+ (NEGATIVE); PROTEIN URINE 2+ (NEGATIVE); SPECIFIC GRAVITY URINE 1.023 (1.005-1.030)
[2023-11-09] MEDS: HYDROCODONE/ACETAMINOPHEN 5/325MG TABLET PO ONE (12:25)
[2023-11-09 12:28] LABS: ALANINE AMINOTRANSFERASE 7 IU/L (10-49); ALBUMIN 4.4 g/dL (3.2-4.8); ASPARTATE AMINOTRANSFERASE 17 IU/L (<34); BILIRUBIN TOTAL 0.3 mg/dL (0.1-1.0); CARBON DIOXIDE 22 mEq/L (21-32); CHLORIDE 106 mEq/L (98-107); CREATININE 1.1 mg/dL (0.6-1.3); GLUCOSE 98 mg/dL (70-105); POTASSIUM 3.7 mEq/L (3.5-5.1); PROTEIN TOTAL 8.4 g/dL (6.0-8.3); SODIUM 136 mEq/L (136-145); UREA NITROGEN BLOOD 18 mg/dL (9-23)
[2023-11-09 12:49] LABS: RBC URINE 50-100 /hpf (0-2); SQUAMOUS EPITHELIAL CELL URINE FEW /lpf (RARE/1+)
[2023-11-09 12:50] LABS: BACTERIA URINE 1+
[2023-11-09 12:51] LABS: WBC URINE 0-2 /hpf (0-2)
[2023-11-09 12:58] LABS: TROPONIN I HIGH SENSITIVITY < 4 ng/L (3.0-53)
[2023-11-09 15:01] VITALS: TEMP 98
[2023-11-09] MEDS: MORPHINE SULFATE 4 MG/ML CPJ (NOT FOR IM USE) IV ONE (15:40)
[2023-11-09 17:00] VITALS: BP 140/82; PULSE 107; RESP 15
[2023-11-09] MEDS ORDERED: IOHEXOL-350 100 ML BOTTLE ONE (23:14)
== END 2023-11-09 18:42 | disposition left against medical advice (07) ==
LOC: ER 12:35
DX: C61 Malignant neoplasm of prostate (principal); R52 Pain, unspecified; I10 Essential (primary) hypertension; Z79.899 Other long term (current) drug therapy; Z20.822 Contact with and (suspected) exposure to COVID-19
CPT/HCPCS: 80053; 81003; 85025; 84484; 36415; 71045; 71275; 74176; 93005; 96374; 99285; 87426; Q9967; J2270; Z7610 ×2

== ENCOUNTER 2023-12-20 08:12 | Emergency (ER) | payer OTHER ==
[~2023-12-20] VITALS: Ht 162.6 cm; Wt 66.0 kg
[2023-12-20 08:28] VITALS: O2SAT 98
[2023-12-20 08:58] LABS: BASOPHILS % 0.4 % (0.0-2.0); EOSINOPHILS % 2.2 % (0.0-5.0); HEMATOCRIT. 28.8 % (42.0-52.0); HEMOGLOBIN. 9.1 g/dL (14.0-18.0); LYMPHOCYTES % 34.7 % (20.0-50.0); MEAN CORPUSCULAR HEMOGLOBIN 24.7 pg (28.0-32.0); MEAN CORPUSCULAR HGB CONC 31.7 g/dL (31.0-37.0); MEAN PLATELET VOLUME 6.6 fl (7.4-10.4); MONOCYTES % 12.6 % (2.0-8.0); NEUTROPHILS % 50.1 % (40.0-76.0); PLATELET 291 x1000/uL (130-400); RED BLOOD CELL COUNT 3.69 mill/uL (4.7-6.1); RED CELL DISTRIBUTION WIDTH 22.8 % (11.6-14.6)
[2023-12-20 09:03] LABS: DIFFERENTIAL COMMENT 1
[2023-12-20 09:39] LABS: CLARITY URINE CLEAR (CLEAR); COLOR URINE YELLOW (YELLOW); GLUCOSE URINE NEGATIVE (NEGATIVE); KETONES URINE TRACE (NEGATIVE); LEUKOCYTE ESTERASE URINE NEGATIVE (NEGATIVE); NITRITE URINE NEGATIVE (NEGATIVE); OCCULT BLOOD URINE 3+ (NEGATIVE); PH URINE 5.5 (4.5-8.0); PROTEIN URINE 1+ (NEGATIVE); SPECIFIC GRAVITY URINE 1.024 (1.005-1.030)
[2023-12-20 09:40] LABS: ALANINE AMINOTRANSFERASE < 7 IU/L (10-49); ALBUMIN 4.3 g/dL (3.2-4.8); ASPARTATE AMINOTRANSFERASE 13 IU/L (<34); BILIRUBIN TOTAL 0.2 mg/dL (0.1-1.0); CALCIUM 8.6 mg/dL (8.7-10.4); CARBON DIOXIDE 23 mEq/L (21-32); CHLORIDE 106 mEq/L (98-107); CREATININE 1.1 mg/dL (0.6-1.3); GLUCOSE 96 mg/dL (70-105); POTASSIUM 3.9 mEq/L (3.5-5.1); PROTEIN TOTAL 7.7 g/dL (6.0-8.3); SODIUM 137 mEq/L (136-145); UREA NITROGEN BLOOD 16 mg/dL (9-23)
[2023-12-20] MEDS: KETOROLAC 60MG/2ML VIAL IM ONE (09:45)
[2023-12-20 09:50] LABS: BACTERIA URINE TRACE; SQUAMOUS EPITHELIAL CELL URINE FEW /lpf (RARE/1+)
[2023-12-20 09:51] LABS: RBC URINE TNTC /hpf (0-2); WBC URINE 0-2 /hpf (0-2)
[2023-12-20 09:59] LABS: TROPONIN I HIGH SENSITIVITY < 4 ng/L (3.0-53)
[2023-12-20] MEDS ORDERED: CEPH500C2 MT (11:29)
[2023-12-20] MEDS ORDERED: IBUP-2028 MT (11:32)
[2023-12-20 11:59] VITALS: BP 146/90; PULSE 76; RESP 16; TEMP 98.9
== END 2023-12-20 12:51 | disposition home or self-care (01) ==
LOC: ER 08:27
DX: R10.9 Unspecified abdominal pain (principal); R31.9 Hematuria, unspecified; I10 Essential (primary) hypertension; Z85.46 Personal history of malignant neoplasm of prostate; Z79.899 Other long term (current) drug therapy
CPT/HCPCS: 99285; 76700; 71046; 80053; 81003; 83880; 83690; 85025; 84484; 36415; 93005; 96372; J1885

== ENCOUNTER 2024-05-11 14:31 | Emergency (ER) | payer OTHER ==
[~2024-05-11] VITALS: Ht 162.6 cm; Wt 66.0 kg
[~2024-05-11 14:31] MED LIST changes: +ALFU10TA46 MT; -ALFU10TA9 MT; -DOXY-456 MT; +DOXY100C74 MT; +IBUP-2028 MT
[2024-05-11 15:08] VITALS: O2SAT 98
[2024-05-11] MEDS: KETOROLAC 30MG/ML VIAL IM ONE (18:04)
[2024-05-11] MEDS ORDERED: CYCL10TA21 MT (19:18)
[2024-05-11] MEDS ORDERED: NAPR220C61 MT (19:18)
[2024-05-11] MEDS: HYDROCODONE/ACETAMINOPHEN 10/325MG TABLET PO ONE (19:42)
[2024-05-11 19:49] VITALS: BP 158/73; PULSE 70; RESP 18; TEMP 36.72516; O2SAT 96
== END 2024-05-11 19:53 | disposition home or self-care (01) ==
LOC: ER 14:34
DX: C61 Malignant neoplasm of prostate (principal); I10 Essential (primary) hypertension; Z79.899 Other long term (current) drug therapy
CPT/HCPCS: 93971; 73502; 73552; 96372; 99285; J1885; Z7610